=== PATIENT | male | born 1935 | race Caucasian/White ===

== ENCOUNTER → 2017-12-03 | Outpatient (CLI) | payer MEDICARE, BC ==
[2013-07-14 17:02] VITALS: BP 139/83
[~2017-12-03] MED LIST: ALLERGY RELIEF10 M1 PO; AREDS 2; CARAFATE 1GM1 G PO; LIORESAL 1010 MG/TAB PO; LISINOPRIL10 MG PO; NORCO 325 MG-51 TA1 PO; PRAVASTATIN40 MG PO; PRENATAL1 TA1 PO; STOOL SOFTNER; SYNTHROID0.075 MG PO; TIKOSYN0.25 MG PO; VITAMIN D
== END ==
LOC: RAD 12:36
DX: K57.30 Diverticulosis of large intestine without perforation or abscess without bleeding (principal); R19.5 Other fecal abnormalities